=== PATIENT | male | born 1980 | race Caucasian/White ===

== ENCOUNTER 2018-09-13 04:52 | Emergency (ER) | payer OTHER ==
[~2018-09-13] VITALS: Ht 185.4 cm; Wt 82.1 kg
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
--- NOTE | 2018-09-13 05:03 | NUR ---
AT BEDSIDE FOR EVAL.
[2018-09-13] MEDS ORDERED: ONDANSETRON HCL/PF 4 MG/2 ML VIAL ONE (05:20)
--- NOTE | 2018-09-13 05:25 | NUR ---
18G IV TO R AC X 1 ATTEMPT USING ASEPTIC TECH, BLOOD HANDED OVER TO THE LAB AT BEDSIDE. IV FLUSHES EASILY WITH NS, NO S/S INFILTRATION NOTED AT THIS TIME.
[2018-09-13] MEDS ORDERED: LIDOCAINE 1%-EPI 1:100,000 20 ML VIAL TP ONE (05:30)
[2018-09-13] MEDS ORDERED: ONDANSETRON HCL/PF 4 MG/2 ML VIAL IVP ONE (05:30)
[2018-09-13] MEDS ORDERED: IV NS 0.9% 1,000 ML BAG IV ONE (05:30)
[2018-09-13 05:37] LABS: BASOPHILS % (AUTO) 0.4 % (0.0-2.0); EOSINOPHILS % (AUTO) 1.7 % (0.0-6.0); HEMATOCRIT 42 % (39-51); HEMOGLOBIN 14.4 g/dL (13.5-17.5); LYMPHOCYTES # (AUTO) 0.7 /CMM (0.8-4.8); LYMPHOCYTES % (AUTO) 8.5 % (20.0-44.0); MEAN CORPUSCULAR HGB CONC 34 g/dl (31.0-36.0); MEAN CORPUSCULAR VOLUME 92 fL (80-96); MONOCYTES # (AUTO) 0.7 /CMM (0.1-1.30); MONOCYTES % (AUTO) 8.1 % (2.0-12.0); NEUTROPHILS # (AUTO) 6.7 /CMM (1.8-8.9); NEUTROPHILS % (AUTO) 81.3 % (43.0-81.0); PLATELET COUNT (AUTO) 154 /CMM (150-450); WHITE BLOOD COUNT (AUTO) 8.3 K/uL (4.3-11.0)
--- NOTE | 2018-09-13 05:44 | NUR ---
AT BEDSIDE FOR SUTURE.
[2018-09-13 05:51] LABS: CALCIUM, SERUM 8.8 mg/dL (8.5-10.1); CARBON DIOXIDE 31 mmol/L (21-32); CHLORIDE 104 mmol/L (98-107); GLUCOSE 102 mg/dL (74-106); POTASSIUM 4.4 mmol/L (3.5-5.1); SODIUM SERUM 141 mmol/L (136-145); UREA NITROGEN, BLOOD 22 mg/dL (7-18)
--- NOTE | 2018-09-13 06:31 | NUR ---
PATIENT TO XRAY VIA STRETCHER, VSS.
--- NOTE | 2018-09-13 07:09 | NUR ---
ENDORSED TO [facility]O FOR [facility].
--- NOTE | 2018-09-13 07:34 | NUR ---
IV removed. Catheter intact and site benign. Pressure and 4x4 applied to site. No bleeding noted.Patient discharged to home in stable condition. Written and verbal after care instructions given. Patient verbalizes understanding of instruction.
[2018-09-13 07:35] VITALS: BP 116/70
== END 2018-09-13 07:36 | disposition home or self-care (01) ==
LOC: ER 04:56
DX: S01.511A Laceration without foreign body of lip, initial encounter (principal); R55 Syncope and collapse; M54.5 Low back pain; W18.39XA Other fall on same level, initial encounter; Y93.89 Activity, other specified; Y92.89 Other specified places as the place of occurrence of the external cause; Y99.8 Other external cause status
CPT/HCPCS: 12011; 36415; 71045; 72100; 80048; 84484; 85025; 93005; 96361; 96374; 99284; A4606; J2405; J7030 ×2; Z7610

== ENCOUNTER 2020-11-08 00:10 | Emergency (ER) | payer OTHER ==
[~2020-11-08] VITALS: Ht 185.4 cm; Wt 81.6 kg
[2020-11-08 00:15] VITALS: BP 136/68
[2020-11-08] MEDS ORDERED: DEXAMETHASONE SOD PHOSPHATE 10 MG/ML VIAL ONE (00:26)
[2020-11-08] MEDS: DEXAMETHASONE SOD PHOSPHATE 4 MG/ML VIAL IM ONE (00:30)
== END 2020-11-08 00:33 | disposition home or self-care (01) ==
LOC: ER 00:10
DX: R21 Rash and other nonspecific skin eruption (principal)
CPT/HCPCS: 96372; 99283; J1100

== ENCOUNTER 2021-09-01 02:50 | Emergency (ER) | payer OTHER ==
[~2021-09-01] VITALS: Ht 185.4 cm; Wt 83.0 kg
--- NOTE | 2021-09-01 03:43 | NUR ---
pt bibself c/o groin pain since thursday s/p vasectomy, pain worse today. Pt aaox4 breathing evenly and unlabored. pt attached to monitor and pox. Pt changed into gown and given blanket and call light within reach. Will continue to monitor.
[2021-09-01] MEDS ORDERED: HYDROCODONE/APAP 10/325MG TABLET PO ONE (04:00)
[2021-09-01] MEDS ORDERED: HYDROCODONE/APAP 10/325MG TABLET ONE (04:10)
[2021-09-01] MEDS ORDERED: ONDANSETRON 4 MG TAB.RAPDIS PO ONE (04:30)
[2021-09-01] MEDS ORDERED: ONDANSETRON 4 MG TAB.RAPDIS ONE (04:41)
--- NOTE | 2021-09-01 04:43 | NUR ---
us at bedside
[2021-09-01] MEDS ORDERED: NAPR-1164 PO (05:35)
--- NOTE | 2021-09-01 05:54 | NUR ---
called loren to have images read
--- NOTE | 2021-09-01 07:06 | NUR ---
Patient discharged to home in stable condition. Written and verbal after care instructions given. Patient verbalizes understanding of instruction. PT ambulatory with a steady gait
[2021-09-01 07:19] VITALS: BP 130/80
== END 2021-09-01 07:06 | disposition home or self-care (01) ==
LOC: ER 02:52
DX: N50.811 Right testicular pain (principal)
CPT/HCPCS: 76870-TC; Q0162

== ENCOUNTER 2023-01-25 19:26 | Emergency (ER) | payer OTHER ==
[~2023-01-25] VITALS: Ht 185.4 cm; Wt 83.9 kg
[~2023-01-25 19:26] MED LIST: NAPR-1164 PO
[2023-01-25] MEDS ORDERED: ONDANSETRON HCL/PF 4 MG/2 ML VIAL ONE ×2 (21:46→22:14)
[2023-01-25] MEDS ORDERED: FAMOTIDINE/PF INJ 20 MG/2 ML VIAL IV ONE ×2 (21:50→22:00)
[2023-01-25] MEDS ORDERED: ONDANSETRON HCL/PF 4 MG/2 ML VIAL IVP ONE (22:00)
[2023-01-25] MEDS ORDERED: IV NS 0.9% 1,000 ML BAG IV ONE (22:00)
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
[2023-01-25] MEDS ORDERED: MORPHINE SULFATE INJ 4 MG/ML DISP.SYRIN ONE (22:14)
[2023-01-25 22:29] LABS: HEMATOCRIT 45 % (39-51); HEMOGLOBIN 14.7 g/dL (13.5-17.5); MEAN CORPUSCULAR HGB CONC 33 g/dl (31.0-36.0); MEAN CORPUSCULAR VOLUME 95 fL (80-96); PLATELET COUNT (AUTO) 170 K/uL (150-450); RED BLOOD CELL COUNT(AUTO) 4.74 MIL/uL (4.5-6.0); WHITE BLOOD COUNT (AUTO) 6.7 K/uL (4.3-11.0)
[2023-01-25 22:30] LABS: BASOPHILS % (AUTO) 0.2 % (0.0-2.0); EOSINOPHILS % (AUTO) 0.6 % (0.0-6.0); LYMPHOCYTES # (AUTO) 0.2 K/uL (0.8-4.8); LYMPHOCYTES % (AUTO) 3.1 % (20.0-44.0); MONOCYTES # (AUTO) 0.4 K/uL (0.1-1.30); MONOCYTES % (AUTO) 5.3 % (2.0-12.0); NEUTROPHILS # (AUTO) 6.1 K/uL (1.8-8.9); NEUTROPHILS % (AUTO) 90.8 % (43.0-81.0)
[2023-01-25] MEDS ORDERED: ONDANSETRON HCL/PF - ER 4 MG/2 ML VIAL IV ONE (22:30)
[2023-01-25] MEDS ORDERED: MORPHINE SULFATE INJ 2 MG/ML DISP.SYRIN IV ONE (22:30)
[2023-01-25 22:41] LABS: ALBUMIN 3.6 g/dL (3.4-5.0); BILIRUBIN,DIRECT 0.1 mg/dL (0.0-0.2); BILIRUBIN,TOTAL 0.7 mg/dL (0.2-1.0); CALCIUM, SERUM 8.7 mg/dL (8.5-10.1); CREATININE 0.8 mg/dL (0.6-1.3); POTASSIUM 4.3 mmol/L (3.5-5.1); TOTAL PROTEIN, SERUM 6.6 g/dL (6.4-8.2)
[2023-01-25] MEDS ORDERED: CIPR-262 PO (23:47)
[2023-01-25] MEDS ORDERED: ONDA4TAB11 PO (23:47)
[2023-01-25] MEDS ORDERED: FAMO20TA8 PO (23:47)
[2023-01-25] MEDS ORDERED: METR500T PO (23:47)
[2023-01-26] MEDS ORDERED: METRONIDAZOLE 500 MG TABLET PO ONE
[2023-01-26] MEDS ORDERED: CIPROFLOXACIN HCL 250 MG TABLET PO ONE
[2023-01-26] MEDS ORDERED: METRONIDAZOLE 500 MG TABLET ONE (00:04)
[2023-01-26] MEDS ORDERED: CIPROFLOXACIN HCL 500 MG TABLET ONE (00:04)
--- NOTE | 2023-01-26 00:05 | NUR ---
Patient discharged to home in stable condition. Written and verbal after care instructions given. Patient verbalizes understanding of instruction.IV removed. Catheter intact and site benign. Pressure and 4x4 applied to site. No bleeding noted.
[2023-01-26 00:07] VITALS: BP 131/67
== END 2023-01-26 00:07 | disposition home or self-care (01) ==
LOC: ER 19:28
DX: R19.7 Diarrhea, unspecified (principal); R11.2 Nausea with vomiting, unspecified; R10.12 Left upper quadrant pain
CPT/HCPCS: 99284; 96374; 96375; 96361; 96376; 85025; 80048; 83690; 80076; 36415; J2270; J3490; J2405 ×2; J7030